=== PATIENT | female | born 1970 | race Caucasian/White ===

== ENCOUNTER → 2018-01-10 | Outpatient (CLI) | payer OTHER ==
[~2018-01-10] MED LIST: ENA5 PO; IBU800 PO; LABE200T31 PO; NORE0.3516 PO; PER PO
--- NOTE | 2018-01-13 11:46 | RADIOLOGY IMAGING REPORT ---
FACILITY: [facility] - [place] PATIENT NAME: EPI HUBER : [id number] MR: [id number] V: [id number] EXAM DATE: ORDERING PHYSICIAN: TYLOR RASHID TECHNOLOGIST: Cat Gagnon PROCEDURE:BILATERAL DIGITAL SCREENING MAMMOGRAM WITH CAD ASSISTED INTERPRETATION & 3D TOMOSYNTHESIS COMPARISON:Prior mammograms 03/11/13, 10/30/11, 10/22/11 INDICATIONS:screening FINDINGS: Dense heterogeneous fibroglandular tissue is seen throughout the breasts. There is a focal area of increased density in the upper portion of the breast Right MLO view in Zone 2 for which spot compression is recommended. DIAGNOSTIC CATEGORY 0--INCOMPLETE: NEED ADDITIONAL IMAGING EVALUATION. RECOMMENDATIONS: ADDITIONAL MAMMOGRAPHIC VIEWS REQUIRED: RIGHT BREAST. IMPRESSION: BIRADS 0: Incomplete Additional view of the Right breast recommended Dictated by: Adelina Ortiz M.D. on 01/10/2018 at 14:23 Transcribed by: [email or web address] on 01/10/2018 at 14:30 Approved by: Adelina Ortiz M.D. on 01/13/2018 at 11:44 [facility]
== END ==
LOC: MAMO 03:33
PROVIDERS: ATTEND Nurse Practitioner Family
DX: Z12.31 Encounter for screening mammogram for malignant neoplasm of breast (principal); R92.8 Other abnormal and inconclusive findings on diagnostic imaging of breast
CPT/HCPCS: 77063; 77067

== ENCOUNTER → 2018-02-07 | Outpatient (CLI) | payer OTHER ==
--- NOTE | 2018-02-07 16:05 | RADIOLOGY IMAGING REPORT ---
FACILITY: [facility] - [place] PATIENT NAME: EPI HUBER : [id number] MR: [id number] V: [id number] EXAM DATE: [id number] ORDERING PHYSICIAN: TYLOR RASHID TECHNOLOGIST: Cat Gagnon PROCEDURE:RIGHT DIGITAL DIAGNOSTIC MAMMOGRAM WITH 3D BREAST TOMOSYNTHESIS COMPARISON:Prior mammograms 01/10/18, 03/11/13, 10/30/11, 10/22/11. INDICATIONS:FURTHER EVAL FINDINGS: The patient returns for spot compression view on the Right MLO projection. A small focal area of increased density in the upper portion of the Right breast on the recent Right MLO view which freely compressible and apparently represented a summation shadow. There is no demonstration of malignant appearing mass or calcification in the Right breast. DIAGNOSTIC CATEGORY 2--BENIGN FINDING. RECOMMENDATIONS: ROUTINE MAMMOGRAM AND CLINICAL EVALUATION. IMPRESSION: BIRADS 2: Benign finding No significant abnormality of the Right breast is seen. Dictated by: Adelina Ortiz M.D. on 02/07/2018 at 9:45 Transcribed by: [email or web address] on 02/07/2018 at 13:23 Approved by: Adelina Ortiz M.D. on 02/07/2018 at 16:04 [facility]
== END ==
LOC: MAMO 04:20
PROVIDERS: ATTEND Nurse Practitioner Family
DX: R92.2 Inconclusive mammogram (principal)
CPT/HCPCS: 77065